=== PATIENT | female | born 1970 | race Caucasian/White ===

== ENCOUNTER 2020-11-13 12:29 | Emergency (ER) | payer OTHER ==
[~2020-11-13] VITALS: Ht 167.6 cm; Wt 103.9 kg
--- NOTE | 2020-11-13 13:05 | NUR ---
assumed care of pt. pt here for low abd pain and constipation pt reports that she has been taking metamucil and that her last BM was yesterday, but that she is having pain in the lower abd area. no urinary c/o. pt has not been taking any stool softeners, but says that she has been eating more fruis and vegetables no N/V pt very restless and agitated on gurney no family at bedside
--- NOTE | 2020-11-13 13:20 | NUR ---
Dr Nicole has been to bedside for eval
[2020-11-13 14:00] VITALS: BP 115/70
--- NOTE | 2020-11-13 14:00 | NUR ---
lab at bedside to draw
--- NOTE | 2020-11-13 14:00 | NUR ---
lab at bedside to draw
--- NOTE | 2020-11-13 14:20 | NUR ---
pt to RAD
--- NOTE | 2020-11-13 14:21 | NUR ---
pt to RAD
[2020-11-13] MEDS ORDERED: KETOROLAC 30 MG/1 ML IM ONE (14:30)
[2020-11-13 14:37] LABS: ALBUMIN 3.2 g/dL (3.4-5.0); ANION GAP 7 mmol/L (5-15); CALCIUM 8.5 mg/dL (8.5-10.1); CHLORIDE 105 mmol/L (98-107); CREATININE 0.72 mg/dL (0.55-1.02)
--- NOTE | 2020-11-13 14:37 | NUR ---
pt ambulated to BR to attempt urine sample
[2020-11-13 14:41] LABS: BASOPHILS % (AUTO) 0 % (0-1); EOSINOPHILS % (AUTO) 1 % (1-7); LYMPHOCYTES % (AUTO) 19 % (22-44); MEAN CORPUSCULAR HEMOGLOBIN 28.8 pg (27.0-34.8); MEAN CORPUSCULAR HGB CONC 33.4 g/dL (32.4-35.8); MEAN PLATELET VOLUME 7.9 fL (7.4-10.4); MONOCYTES % (AUTO) 7 % (2-9); NEUTROPHILS % (AUTO) 73 % (42-75); PLATELET COUNT 301 x10^3/uL (130-400); RED BLOOD COUNT 4.32 x10^6/uL (3.82-5.3); RED CELL DISTRIBUTION WIDTH 13.6 % (9.6-15.2)
[2020-11-13] MEDS ORDERED: KETOROLAC 30 MG/1 ML ONE (14:56)
[2020-11-13] MEDS ORDERED: metroNIDAZOLE 500 MG TABLET PO ONE (15:00)
[2020-11-13] MEDS ORDERED: CEFDINIR 300 MG CAPSULE PO/NG ONE (15:00)
--- NOTE | 2020-11-13 15:22 | NUR ---
report to [facility] for lunch
[2020-11-13] MEDS ORDERED: metroNIDAZOLE 500 MG TABLET ONE (15:24)
[2020-11-13] MEDS ORDERED: CEFDINIR 300 MG CAPSULE ONE (15:24)
[2020-11-13 15:26] LABS: MICROSCOPIC NOT IND
--- NOTE | 2020-11-13 15:26 | NUR ---
break rn- medicated as ordered.
--- NOTE | 2020-11-13 15:47 | NUR ---
[facility] Pulido at bedside to discuss POC
--- NOTE | 2020-11-13 16:01 | NUR ---
this patient has been D/C by another RN
== END 2020-11-13 16:15 ==
LOC: ED 13:03
DX: K57.32 Diverticulitis of large intestine without perforation or abscess without bleeding (principal); N23 Unspecified renal colic
CPT/HCPCS: 36415; 74018; 74176; 80048; 81003; 82040; 85025; 96372; 99285; J1885